=== PATIENT | female | born 1965 | race Caucasian/White ===

== ENCOUNTER → 2020-03-01 | Outpatient (CLI) | payer OTHER ==
--- NOTE | 2020-03-01 14:13 | MR ---
EXAMINATION TYPE: MR shoulder LT wo con DATE OF EXAM: 03/01/2020 COMPARISON: Outside radiographs 01/04/2020 HISTORY: 54-year-old female with left shoulder pain TECHNIQUE: Multiplanar, multisequence imaging of the left shoulder is performed without contrast. FINDINGS: The exam is motion limited. Heterogeneity throughout the supraspinatus and infraspinous tendons. Bursal sided fraying is present throughout. Shallow 7 mm long bursal sided tear of the anterior to mid infraspinatus tendon fibers me asuring 6 mm AP located just below the level of the acromion. The infraspinatus and subscapularis tendons are intact. No atrophy of the rotator cuff musculature. Trace fluid within the subacromial/subdeltoid bursa. Long head biceps tendon appears intact. Moderate degenerative joint space narrowing of marginal spurring and capsular hypertrophy at the acro mioclavicular joint. No significant mass effect onto the underlying myotendinous junction of the supr aspinatus. The glenohumeral joint is intact with a small joint effusion. No discrete labral tear given nonarthrographic technique and no para labral cyst. No Hill-Sachs deformity or os acromiale. Patchy red marrow can be seen in the setting of anemia, obesity, smoking, chronic disease. IMPRESSION: 1. Supraspinatus and infraspinatus tendinosis with bursal sided fraying throughout. In addition, ther e is a shallow bursal sided tear measuring 7 x 6 mm of the anterior to mid supraspinatus tendon locat ed just below the level of the acromion. No high-grade partial or full-thickness rotator cuff tear. 2. Moderate AC joint OA. Trace subacromial/subdeltoid bursal effusion/bursitis. 3. Small glenohumeral joint effusion.
== END | disposition home or self-care (01) ==
LOC: RADMRIMAIN 11:03
PROVIDERS: ATTEND Orthopaedic Surgery
DX: M19.012 Primary osteoarthritis, left shoulder (principal); M25.412 Effusion, left shoulder

== ENCOUNTER → 2020-04-17 | Outpatient (CLI) | payer OTHER ==
[2020-04-17 14:33] LABS: Basophils # (A) 0.1 k/uL (0-0.2); Basophils % (A) 1 %; Eosinophils # (A) 0.2 k/uL (0-0.7); Eosinophils % (A) 2 %; HCT 43.1 % (34.0-46.0); HGB 14.6 gm/dL (11.4-16.0); Lymphocytes # (A) 2.6 k/uL (1.0-4.8); Lymphocytes % (A) 27 %; MCH 31.2 pg (25.0-35.0); MCHC 33.9 g/dL (31.0-37.0); MCV 92.2 fL (80.0-100.0); Mean Platelet Volume 8.2; Monocytes # (A) 0.3 k/uL (0-1.0); Monocytes % (A) 4 %; Neutrophils # (A) 6.3 k/uL (1.3-7.7); Neutrophils % (A) 65 %; Platelet Count 221 k/uL (150-450); RBC 4.67 m/uL (3.80-5.40); RDW 12.6 % (11.5-15.5); WBC 9.7 k/uL (3.8-10.6)
[2020-04-17 14:53] LABS: Potassium 3.3 mmol/L (3.5-5.1)
== END | disposition home or self-care (01) ==
LOC: LABPAT 13:26
PROVIDERS: ATTEND Orthopaedic Surgery
DX: M75.42 Impingement syndrome of left shoulder (principal)
CPT/HCPCS: 80051; 85025; 93005

== ENCOUNTER 2020-04-27 06:41 | Day surgery (SDC) | payer OTHER ==
[2020-04-20 11:55] VITALS: BMI 26.6
--- NOTE | 2020-04-26 14:20 | HP ---
HISTORY AND PHYSICAL Surgery is 04/27/2020. Angela Celeste is a 55-year-old patient seen with progressive left shoulder pain. We discussed options for treatment. She elected to proceed with arthroscopy. Consent was obtained. PAST MEDICAL HISTORY: Hypertension, hypercholesterolemia. PAST SURGICAL HISTORY: Tubal ligation, section, foot surgery. DAILY MEDICATIONS: 1. Hydrochlorothiazide. 2. Pravastatin. 3. Vitamins. ALLERGIES: None. SOCIAL HISTORY: She smokes 1 pack of cigarettes daily. PHYSICAL EXAMINATION: Physical evaluation of the left shoulder: Flexion is 130 degrees, abduction is 120 degrees, external rotation is 40 degrees with weakness, tenderness along the anterior lateral acromion and rotator cuff insertion site. Impingement is positive at 90. Drop- arm sign positive. Distal neurovascular exam intact. Radiographs of the left shoulder revealed a type 2 anterior acromion, moderate acromioclavicular joint osteoarthritis and cystic changes of the greater tuberosity. Left shoulder MRI revealed rotator cuff tendon tear and acromioclavicular joint osteoarthritic changes. IMPRESSION: 1. Left shoulder impingement with rotator cuff tear. 2. Left shoulder acromioclavicular joint osteoarthritis. 3. Hypertension. 4. Hyperlipidemia. 5. Tobacco use. PLAN: Left shoulder arthroscopy with subacromial decompression, arthroscopic rotator cuff repair, arthroscopic Vandana procedure and debridement. MMODL / IJN: [id number] /
[~2020-04-27 06:41] MED LIST: HYDROmorphone 0.5 MG/0.5 ML SYRINGE IVP PRN; LACTATED RINGERS 1,000 ML IV SCH; ONDANSETRON 4 MG/2 ML VIAL IVP ONE; fentaNYL (PF) 50 MCG/ML 2 ML AMP IV PRN
[2020-04-27 07:28] VITALS: RESP 16
[2020-04-27] MEDS ORDERED: ONDANSETRON 4 MG/2 ML VIAL ONE ×2 (07:44→08:20)
[2020-04-27] MEDS ORDERED: MIDAZOLAM 2 MG/2 ML VIAL IV ONE (08:07)
[2020-04-27] MEDS ORDERED: LIDOCAINE 1% INJ 10MG/ML (20 ML MDV) ONE (08:23)
[2020-04-27] MEDS ORDERED: MIDAZOLAM 2 MG/2 ML VIAL ONE (08:23)
[2020-04-27] MEDS ORDERED: DEXAMETHASONE SOD PHOSPHATE 4 MG/ML 1 ML VIAL ONE (08:23)
[2020-04-27] MEDS ORDERED: KETOROLAC 15 MG/ML 1 ML VIAL ONE (08:23)
[2020-04-27] MEDS ORDERED: PROPOFOL 10 MG/ML 20 ML VIAL IV ONE (08:23)
[2020-04-27] MEDS ORDERED: fentaNYL (PF) 50 MCG/ML 2 ML AMP ONE (08:23)
[2020-04-27] MEDS ORDERED: SUCCINYLCHOLINE CHLORIDE 100 MG/5 ML SYR IV ONE (08:23)
[2020-04-27] MEDS ORDERED: ROPIVACAINE 5 MG/ML 30 ML VIAL ONE (08:23)
[2020-04-27] MEDS ORDERED: DEXAMETHASONE SOD PHOSPHATE 4 MG/ML 1 ML VIAL IV ONE (08:25)
[2020-04-27] MEDS ORDERED: LACTATED RINGERS 1,000 ML IV ONE (09:26)
[2020-04-27 09:44] VITALS: TEMP 97.1
--- NOTE | 2020-04-27 09:46 | P.OP ---
Date of Procedure: 04/27/20 Preoperative Diagnosis: Left shoulder impingement Postoperative Diagnosis: 1. Left shoulder rotator cuff tear 2. Left shoulder impingement 3. Left shoulder partial long head biceps tendon tear Procedure(s) Performed: 1. Left shoulder arthroscopic rotator cuff repair 2. Left shoulder arthroscopic subacromial decompression 3. Left shoulder arthroscopic biceps tenotomy Anesthesia: GETA, regional (Interscalene block) Surgeon: David Long Livestock Trucker #1: Osorio Rocha Estimated Blood Loss (ml): 10 Pathology: none sent Condition: stable Disposition: PACU Indications for Procedure: 55-year-old patient seen with progressive left shoulder pain. After having treatment options discussed, she elected to proceed with arthroscopy. Operative Findings: See description of procedure Description of Procedure: Patient underwent an interscalene block by department of anesthesia. The patient was then taken to the operative suite. The patient underwent a general anesthetic by the department of anesthesia. The patient was placed into a lateral position and secured. There was appropriate padding of the bony prominence. Left shoulder was then prepped and draped in normal sterile orthope dic fashion. We placed the extremity in 10 pounds of longitudinal traction. A posterior incision was now made for a posterior working portal site. The trocar and cannula were inserted into the glenohumeral joint. Arthroscopy was initiated. Spinal needle was now inserted anteriorly, to ascertain the anterior working portal site. An incision was now made in that area, a trocar was inserted followed by a probe. There was some hyperemia as well as partial tearing of the long head biceps tendon. The labrum was probed and found to be stable. There was some grade 1 chondromalacia changes diffusely. I performed an arthroscopic biceps tenotomy. I again probe the labrum and it was found to be stable. Instruments were now removed from the glenohumeral joint. Utilizing the posterior working portal site, the trocar and cannula were inserted into the subacromial space. Arthroscopy initiated. I made an incision 2 fingerbreadths lateral to the acromion. I introduced my trocar followed [facility]. I now began ablating thick subacromial bursal tissue, which exposed the undersurface of the anterior acromion. There was diminished subacromial space. There was a very prominent anterior acromion. A motorized bur was introduced and a subacromial decompression was performed. I also excised some osteophytes off the inferior aspect of the distal clavicle. The AC joint was visualized and noted to be moderately arthritic. I now turned my attention to the rotator cuff tendon. There was some partial tearing along the midportion distal supraspinatus. I debrided that area. I probed the area and found a full-thickness perforation present. I debrided the margins gained down to stable tendon tissue. The defect measured approximately 11.5 cm but was freely mobile over the footprint. I abraded the footprint with a motorized bur. I passed 3 everted mattress sutures through good bites of rotator cuff tendon with the assistance of Francisco SABILLON. I punched the hole in the footprint area for insertion of an anchor. All 6 limbs of suture were now passed through the eyelet of a 4.75 Arthrex swivel lock anchor. I placed the eyelet into the pre- punch hole. Francisco SABILLON tensioned all 6 sutures and the sherrill the anchor with good fixation noted. All residual suture limbs were now clipped. We had good compression of the tendon along the entire footprint. I injected 1 mL Renyte intra-articular. Instruments now removed from the portal sites. All portal sites were approximated with nylon suture. Sterile dressings were applied followed by a shoulder sling. Osorio SABILLON assisted in this complex case. The patient was awakened, transferred to a bed, and taken to recovery in stable condition.
[2020-04-27 11:06] VITALS: BP 131/68; PULSE 82
--- NOTE | 2020-04-27 18:25 | P.ANPRN ---
Procedure Note - Anesthesia - Nerve Block Performed Left Interscalene Single Time Out Performed: Yes Date of Procedure: 04/26/20 Procedure Start Time: 08:06 Location of Patient: PreOp Indication: Acute Post-Operative Pain, Requested by Surgeon Sedation Type: Sedate with meaningful contact maintained Preparation: Sterile Prep Position: Supine Needle Types: Pajunk Needle Gauge: 21 Ultrasound used to visualize needle placement: Yes Ultrasound used to observe medication spread: Yes Blood Aspirated: No Pain Paresthesia on Injection Noted: No Resistance on Injection: Normal Image Stored and Saved: Yes Events: Uneventful and Well Tolerated (ropi .5% 20cc plus dexamethason 4mg)
== END 2020-04-27 11:34 | disposition home or self-care (01) ==
LOC: OR 06:41
PROVIDERS: ATTEND Orthopaedic Surgery
DX: M75.122 Complete rotator cuff tear or rupture of left shoulder, not specified as traumatic (principal); M75.42 Impingement syndrome of left shoulder; M19.012 Primary osteoarthritis, left shoulder; S46.112A Strain of muscle, fascia and tendon of long head of biceps, left arm, initial encounter; M94.212 Chondromalacia, left shoulder; M25.712 Osteophyte, left shoulder; F17.210 Nicotine dependence, cigarettes, uncomplicated; I10 Essential (primary) hypertension; E78.00 Pure hypercholesterolemia, unspecified; E78.5 Hyperlipidemia, unspecified; Z79.899 Other long term (current) drug therapy; Z98.891 History of uterine scar from previous surgery; Z98.51 Tubal ligation status; Z98.890 Other specified postprocedural states
CPT/HCPCS: 64415; 76942; 84132; 29826; 29827; C1713; Q4212; J2250; J1100; J0690; J2405; J2001; J3010; J2795; J1885; J0330; J2704

== ENCOUNTER 2020-09-25 11:25 | Day surgery (SDC) | payer OTHER ==
[2020-09-21 11:49] VITALS: BMI 25.7
--- NOTE | 2020-09-24 16:48 | HP ---
HISTORY AND PHYSICAL REASON FOR ADMISSION: Surgery scheduled for 09/25/2020 HISTORY OF PRESENT ILLNESS: Angela Celeste is a 55-year-old patient seen with persistent left shoulder adhesive capsulitis. We discussed options. She elected to proceed with manipulation under anesthesia left shoulder with steroid injection. Consent was obtained. PAST MEDICAL HISTORY: Hyperlipidemia and hypertension. PAST SURGICAL HISTORY: Tubal ligation, section, foot surgery, left shoulder arthroscopy. MEDS: Hydrochlorothiazide, pravastatin. ALLERGIES: NONE. SOCIAL HISTORY: Smokes cigarettes. PHYSICAL EXAMINATION: Evaluation of the left shoulder: She has well-healed arthroscopic portal sites. Flexion is 130, abduction is 120, external rotation is 30 with weakness. Her distal neurovascular exam is intact. RADIOGRAPHS: Radiographs of the left shoulder revealed stable conversion to a flat anterior acromion. IMPRESSION: 1. Left shoulder adhesive capsulitis. 2. History of left shoulder arthroscopic rotator cuff repair. 3. Hypertension. 4. Hyperlipidemia. PLAN: Manipulation under anesthesia left shoulder with steroid injection. Surgery scheduled for 09/25/2020. MMODL / IJN: [id number] /
[~2020-09-25 11:25] MED LIST changes: -HYDROmorphone 0.5 MG/0.5 ML SYRINGE IVP PRN; +LIDOCAINE 1% (10MG/ML) FOR IV START INTRADERMA PRN; -ONDANSETRON 4 MG/2 ML VIAL IVP ONE; +Pre Op ABX Message 1 EACH MISC MISCELLANE ONE; -fentaNYL (PF) 50 MCG/ML 2 ML AMP IV PRN
[2020-09-25] MEDS ORDERED: ONDANSETRON 4 MG/2 ML VIAL ONE (11:50)
[2020-09-25 12:25] VITALS: TEMP 98
[2020-09-25] MEDS ORDERED: fentaNYL (PF) 50 MCG/ML 2 ML AMP ONE (12:28)
[2020-09-25] MEDS ORDERED: PROPOFOL 10 MG/ML 20 ML VIAL IV ONE (12:28)
[2020-09-25] MEDS ORDERED: LIDOCAINE 1% INJ 10MG/ML (20 ML MDV) ONE (12:28)
--- NOTE | 2020-09-25 12:35 | P.OP ---
Date of Procedure: 09/25/20 Preoperative Diagnosis: Left shoulder adhesive capsulitis Postoperative Diagnosis: Left shoulder adhesive capsulitis Procedure(s) Performed: Manipulation under anesthesia left shoulder with steroid injection Anesthesia: MAC, local Surgeon: David Long Estimated Blood Loss (ml): 0 Pathology: none sent Condition: stable Disposition: PACU Indications for Procedure: 55-year-old patient seen with symptomatic left shoulder adhesive capsulitis. We discussed options. She elected to proceed with manipulation under anesthesia left shoulder with steroid injection. Consent was obtained. Operative Findings: See description of procedure Description of Procedure: The patient was taken to monitored anesthesia. She received IV sedation by the department of anesthesia. Once sufficient anesthesia was noted I performed a manipulation of the left shoulder achieving near full range of motion with audible tearing of the adhesions. The anterior aspect of the shoulder was now prepped and draped in the normal sterile orthopedic fashion. I introduced a solution of 1 mL Depo-Medrol and 2 mL quarter percent plain Marcaine intra- articular under sterile technique. Applied a sterile Band-Aid. The shoulder was again taken through range of motion. The patient was awakened having tolerated procedure well.
[2020-09-25 12:47] VITALS: RESP 16
[2020-09-25] MEDS ORDERED: KETOROLAC 15 MG/ML 1 ML VIAL IVP ONE (13:01)
[2020-09-25] MEDS ORDERED: HYDROmorphone 0.5 MG/0.5 ML SYRINGE IVP ONE (13:02)
[2020-09-25 13:42] VITALS: BP 113/74; PULSE 74
== END 2020-09-25 14:00 | disposition home or self-care (01) ==
LOC: OR 11:25
PROVIDERS: ATTEND Orthopaedic Surgery
DX: M75.02 Adhesive capsulitis of left shoulder (principal); I10 Essential (primary) hypertension; E78.5 Hyperlipidemia, unspecified; Z98.51 Tubal ligation status; Z98.890 Other specified postprocedural states; F17.220 Nicotine dependence, chewing tobacco, uncomplicated; Z98.891 History of uterine scar from previous surgery; Z79.899 Other long term (current) drug therapy
CPT/HCPCS: 23700; 20610; J2405; J2001; J3010; J1885; J2704; J1170

== ENCOUNTER 2022-05-15 08:18 | Day surgery (SDC) | payer OTHER ==
[2022-05-13 17:22] VITALS: BMI 25.0
[~2022-05-15 08:18] MED LIST changes: +ONDANSETRON 4 MG/2 ML VIAL IVP PRN; -Pre Op ABX Message 1 EACH MISC MISCELLANE ONE
[2022-05-15 09:07] VITALS: TEMP 98
[2022-05-15] MEDS ORDERED: LACTATED RINGERS 1,000 ML IV ONE (09:09)
[2022-05-15] MEDS ORDERED: PROPOFOL 10 MG/ML 20 ML VIAL IV ONE (09:49)
--- NOTE | 2022-05-15 10:10 | P.PCN ---
Date of Procedure: 05/15/22 Procedure(s) Performed: BRIEF HISTORY: Patient is a 57-year-old pleasant white female scheduled for an elective colonoscopy as a part of evaluation of chronic diarrhea and intermittent abdominal pain for the last several months duration. She is been having 4-5 loose watery bowel movements daily. No blood or mucus in the stool. PROCEDURE PERFORMED: Colonoscopy with biopsy. PREOPERATIVE DIAGNOSIS: Abdominal pain and chronic diarrhea of 3-4 months duration. IV sedation per Anesthesia. PROCEDURE: After informed consent was obtained, the patient, was brought into the endoscopy unit. IV sedation was administered by Anesthesia under continuous monitoring. Digital rectal examination was normal. Initially the Olympus CF-160 flexible video colonoscope was then inserted in the rectum, gradually advanced into the cecum without any difficulty. Careful examination was performed as the scope was gradually being withdrawn. Ileocecal valve and the appendiceal orifice were visualized and appeared normal. Prep was excellent. The terminal ileum was intubated without any difficulty. 20 cm visualized. There was one isolated ulceration in the terminal ileum and the rest of the mucosa appeared normal. Biopsies were done from this area. Mucosa of the cecum, ascending colon, transverse colon, descending colon, sigmoid colon, and rectum appeared normal. Random biopsies were done from ascending and descending colon to rule out microscopic/collagenous colitis. Retroflexion was performed in the rectum and no lesions were seen. The patient tolerated the procedure well. IMPRESSION: Isolated erosion in the terminal ileum status post biopsy The entire colon appeared normal with no evidence of colitis or colorectal neoplasia RECOMMENDATIONS: Findings of this examination were discussed with the patient is well as her family. She was advised to follow with the biopsy results. She will continue with Bentyl 10 mg 3 times daily as needed and she'll be seen in office in 3-4 weeks..
[2022-05-15 10:13] VITALS: RESP 16
[2022-05-15 10:28] VITALS: BP 124/76; PULSE 70
== END 2022-05-15 10:51 | disposition home or self-care (01) ==
LOC: ORWHC2ENDO 08:18
PROVIDERS: ATTEND Internal Medicine Gastroenterology
DX: K52.9 Noninfective gastroenteritis and colitis, unspecified (principal); E78.5 Hyperlipidemia, unspecified; F17.200 Nicotine dependence, unspecified, uncomplicated; Z79.83 Long term (current) use of bisphosphonates; Z79.891 Long term (current) use of opiate analgesic; Z98.890 Other specified postprocedural states; Z79.899 Other long term (current) drug therapy
CPT/HCPCS: 88305; 45380; J2704